=== PATIENT | male | born 1945 | race Caucasian/White ===

== ENCOUNTER 2017-06-12 10:29 | Day surgery (SDC) | payer MEDICARE ==
[~2017-06-12] VITALS: Ht 175.3 cm; Wt 101.2 kg
[~2017-06-12 10:29] MED LIST: ACET325T51 PO; ALBU8.5H2 INHALATION; BECL8.7A6 INHALATION; FELO10TA3 PO; LIP40 PO; LOSA50TA37 PO; Lactated Ringer's 1,000 ML IV ONE; METF500T7 PO; METF750T2 PO; METO2.5T12 PO; MULT-1018 PO; POTA-62 PO; SPIR50TA2 PO; TOP100 PO; TORS20TA3 PO; TRAZ150T72 PO; WARF6TAB6 PO
[2017-06-12] MEDS ORDERED: Propofol 10,000 mCg/mL 20 mL Inj ONE (10:30)
[2017-06-12] MEDS ORDERED: Glycopyrrolate 0.2 MG/ML 1mL Inj ONE (10:30)
[2017-06-12] MEDS ORDERED: Ketamine 10 mg/mL 20 mL Inj ONE (10:30)
[2017-06-12 11:01] VITALS: BP 107/66; PULSE 59; RESP 16; O2SAT 98
--- NOTE | 2017-06-12 12:00 | PCM.HPANE ---
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 Confirmed by CXR. Does not have TB testing due to known Past Anesthesia History Anesthesia History: Denies:: Abnormal Airway, Anesthesia Reactions, Difficult Intubation, Fam Anesthesia Reaction, Fam Malignant Hypertherm, Malignant Hyperthermia Diabetes History Hx Diabetes?: Yes MRSA MRSA: No Medications Blood Thinner: Coumadin Last Dose Blood Thinner: Jun 07, 2017 Hypertension Medication: Yes Home Meds Incl Beta Marvin: Yes Date Beta Marvin Taken: Jun 12, 2017 Time Beta Marvin Taken: 0800 Reported Medications Warfarin Sodium 6 Mg Tablet6 Mg PO DAILY 30 Days 06/11/17 Acetaminophen 325 Mg Wubsfa094 Mg PO Q4H PRN For Fever Ref 0 06/11/17 Trazodone 150 Mg Ulezth51 Mg PO HS Ref 0 06/11/17 Torsemide 20 Mg Rproow47 Mg PO DAILY 30 Days Ref 0 06/11/17 Metoprolol Succinate ER (Toprol XL)100 Mg Pkkxtn157 Mg PO BID Ref 0 06/11/17 Spironolactone 50 Mg Bocwct46 Mg PO DAILY #30 TABLET Ref 0 06/11/17 Beclomethasone Dipropionate (Qvar)8.7 Gm Aer.w.adap2 Puff INHALATION BID #8.7 GM 06/11/17 Albuterol HFA (Proair HFA)8.5 Gm Hfa.aer.ad2 Puffs INHALATION Q4H #1 INHALER 06/11/17 Potassium Chloride ER 20 Meq Tablet.er20 Meq PO DAILY Ref 0 TAKE WITH FOOD 06/11/17 Multivitamin (Multi Vitamin Daily)1 Each Tablet1 Each PO DAILY 30 Days Ref 0 06/11/17 Metolazone 2.5 Mg Tablet2.5 Mg PO DAILY #30 TABLET 06/11/17 Metformin ER 750 Mg Txicqs140 Mg PO DAILY Ref 0 06/11/17 Metformin ER 500 Mg Gutmfa938 Mg PO DAILY Ref 0 06/11/17 Losartan Potassium 50 Mg Mdlyxb75 Mg PO DAILY 06/11/17 Felodipine ER 10 Mg Tab.er.24h10 Mg PO DAILY Ref 0 06/11/17 Atorvastatin (Lipitor)40 Mg Npfkfq37 Mg PO DAILY Ref 0 06/11/17 Discontinued Reported Medications Warfarin Sodium 6 Mg Tablet6 Mg PO DAILY 30 Days 09/21/14 Acetaminophen (Tylenol Extra Strength)500 Mg Jbueeo336 Mg PO 09/21/14 Trazodone 150 Mg Smpofa56 Mg PO HS 30 Days Ref 0 09/21/14 Metoprolol Succinate ER (Toprol XL)100 Mg Jmfiw789 Mg PO BID 30 Days Ref 0 09/21/14 Spironolactone 25 Mg Fhuijg11 Mg PO DAILY #30 TABLET Ref 0 09/21/14 Potassium Chloride ER 20 Meq Tablet.er40 Meq PO BID 30 Days Ref 0 TAKE WITH FOOD 09/21/14 Multivitamin (Multiple Vitamins)1 Each Tablet1 Each PO DAILY 09/21/14 Lisinopril 20 Mg Remsyl33 Mg PO BID 30 Days Ref 0 09/21/14 Furosemide (Lasix)40 Mg Ophrdq12 Mg PO DAILY 30 Days Ref 0 09/21/14 Felodipine ER 10 Mg Tab.er.24h10 Mg PO BID 30 Days Ref 0 09/21/14 History History of ENT Problems?: No HEENT History: Positive for:: Hearing Problem Denies:: Abnormal Airway Cataracts Difficult Intubation Dysphagia Sinus Problem Denture Type: None Teeth Condition: Tooth Decay Hx of Heart Problems?: Yes Cardiovascular History: Positive for:: AICD (never fired) Cardiac Surgery (ICD 2008) Congestive Heart Failure (related to Afib) Coronary Artery Disease ([place] '00) Edema (Pedal trace) Hypertension Irregular Heartbeat (A fib; cardioversions in the past) Pacemaker Denies:: Atrial Fibrillation Chest Pain Heart Murmur Thrombophlebitis Valvular Heart Disease Other Cardiac History: no nitroglycerin Hx of Respiratory Problem?: Yes Respiratory History: Positive for:: Asthma Use of Inhalers / NEBS (albuterol daily) Denies:: COPD Chest Surgery Cough Dyspnea Emphysema Hemoptysis Pneumonia Tuberculosis Hx Neurologic Problems?: No Neurological History: Denies:: Alzheimer's Disease CVA Dementia Dizziness Headaches Parkinson's Disease Seizures TIA Hx of GI Problems?: Yes Gastrointestinal History: Positive for:: Gastroesphageal Reflux Gastrointestinal Bleeding Rectal Bleeding Hx of Problems?: Yes Genitourinary History: Positive for:: Kidney Stones (L nephrolithotomy) Denies:: Urinary Tract Infection Skin History: Denies:: History Skin Disorders? Pressure Ulcers Hx Musculoskeletal Problems?: No Musculoskeletal History: Denies:: Back Injury Fibromyalgia Joint Replacement Musculoskeletal Trauma Hx of Psycho/Social Problems?: No Psycho Social History: Denies:: Anxiety Bipolar Disorder Hx Depression Hx Surgeries?: Yes (PACEMAKER/AICD, KIDNEY STONES X2, MIGUEL, ACHILLES TENDON) Hx Any Other Health Problems?: Yes Other History: Positive for:: Hospitalization Denies:: Cancer Endocrine Disease Thyroid Disease History Blood Transfusions: Denies:: Blood Transfuse Reaction Blood Transfusions Hx Diabetes: Yes Hx Alcohol Use: NoHx Substance Use: No Smoking Status: Never Smoker Stop/Bang Treated for Sleep Apnea?: No Do You Have a CPAP Machine?: No S-Snoring: Do You Snore Loudly: No T-Tired: feel tired, fatigued: No O-Obsered: Observed not breath: No P-Blood Pressure: treated: Yes B- Body Mass Index > 35 kg/m2: No A- Age over 50: Yes N- Neck Large Circumference: No G- Gender Male: Yes SONIA Total Score: 3 Risk Assessment Category Category 1A: Patient has history of documented sleep apnea, and HAS NOT received any narcotic, sedative or anesthesia administration during this stay. Category 1B: Patient has history of documented sleep apnea, and HAS received any narcotic , sedative or anesthesia administration during this stay Category 2: Patient has SUSPECTED Obstructive Sleep Apnea, and HAS received any narcotic , sedative or anesthesia administration during this stay. Category 3: Patient has SUSPECTED Obstructive Sleep Apnea and HAS NOT received narcotic, sedative or anesthesia administration during this stay. Category 4: Outpatient in Procedural Areas with known sleep apnea or who screen positive for High Risk via the STOP/BANG questionnaire. Exam Exam Vital Signs Vital Signs Date Time Temp Pulse Resp B/P Pulse Ox O2 Delivery O2 Flow Rate FiO2 06/12/17 11:01 36.2 59 16 107/66 98 Room Air General Appearance: Alert, Oriented X3, Cooperative, No Acute Distress HEENT/AIRWAY: MP 3, Neck Movement (FROM), Mouth Opening (3), Other (tmd3) Lungs: Diminished Heart: Regular Rate/Rhythm, Other (paced) Plan Impression Patient chart reviewed, patient interviewed and anesthestic plan with risks, benefits, and alternatives discussed, and informed consent obtained. NPO per Anesth. Guidelines: Yes ASA Physical Status: ASA4 Life Threatening Anesthetic Plan: TIVA Bene/Risks/Altern/Consents: Yes HP Complete Prior to Induction: Yes Anish Smith MD Jun 12, 2017 12:00
[2017-06-12 12:57] VITALS: BP 106/60; PULSE 70; RESP 12; O2SAT 95
[2017-06-12 13:07] VITALS: BP 105/65; PULSE 73; RESP 12; O2SAT 96
[2017-06-12 13:13] VITALS: BP 113/71; PULSE 73; RESP 12; O2SAT 99
--- NOTE | 2017-06-12 13:36 | ENDO ---
[address] [address] ENDOSCOPY PROCEDURE PATIENT: EDDA BOLTNO : 1945 MR#: [id number] ADMIT: 06/12/2017 JOB ID: [id number] DATE: 06/12/2017 PRIMARY PROVIDER: Roderick Delacruz M.D. PROCEDURE: Colonoscopy with hot snare polypectomy and cold forceps polypectomy and cold snare polypectomy. INDICATIONS: A 71-year-old male who had noted some intermittent red blood per rectum. He is due for colon cancer screening. EQUIPMENT: PCF H 190 DL. SEDATION: Monitored anesthesia as provided by Dr. Anish Smith. COMPLICATIONS: None identified. BOWEL PREPARATION: Fair, adequate examination. PROCEDURAL INFORMATION: After the risks and benefits were explained, written and verbal informed consent was obtained. The patient was brought into the endoscopy suite and placed into the left lateral decubitus position. Sedation was achieved as above. A digital rectal examination was accomplished. Mild internal hemorrhoids were noted. The scope was introduced into the rectum and advanced under direct visualization to the level of the cecum, as identified by the appendiceal orifice and ileocecal valve. The scope was slowly withdrawn to carefully examine the mucosa for any defects or lesions. The colon was decompressed. The scope removed from the patient who tolerated the procedure well. FINDINGS: In the colon proper and cecum, there were three polyps removed one by way of hot snare (this was the largest at about 7 mm), one by cold snare and one by cold forceps. There was also a larger perhaps 12-14 mm sessile polyp in the cecum tucked up next to the ileocecal valve. Difficult to see and maintain position on. We removed this by way of piecemeal hot snare polypectomy using a Jumbo snare and standard polypectomy snare. There was one final component of the polyp that we just could not removed by way of snare and I ablated this using right colon settings with a circumferential APC probe. No other significant pathology was appreciated throughout. We placed a magnet over the patient's pacemaker during the cautery component of our procedure. Scope time was 41 minutes based on the challenging polypectomy in the cecum and, therefore, a 22 modifier was requested. ENDOSCOPIC DIAGNOSES: Gastroduodenopathy. 1. Colon polyps. 2. Hdkp-vh-jdfeqqkq internal hemorrhoids. RECOMMENDATIONS: 1. Await histopathology. 2. Repeat colonoscopy in three years' time. 3. The patient is encouraged to hold off on restarting Coumadin for another few days.
--- NOTE | 2017-06-17 16:06 | PATH ---
SURGICAL PATHOLOGY Attending Physician:Janes Licea CASE STATUS: Signed Out PATIENT NAME: EDDA BOLTON PID: [id number] : 1945 DATE COLLECTED:06/12/2017 19:09 SPECIMEN: 1: Colon, Polyp 2: Colon, Polyp CLINICAL HISTORY: 1). COLON POLYP X 1 2). CECAL POLYP X 3 FINAL DIAGNOSIS: 1. Colon Polyp, Biopsy: Tubular adenoma. 2. Cecal Polyps x3, Polypectomies: Fragments of sessile serrated adenoma. ICD10: D12.6 GROSS DESCRIPTION: The specimen is received in two formalin filled containers labeled with the patient's name. 1). The specimen is labeled "colon polyp" and consists of 3 portions of tissue which aggregate to 0.3 x 0.3 x 0.3 CM. The specimen is entirely submitted in cassette 1A. 2). The specimen is labeled "cecal polyp" and consists of multiple portions of tissue which aggregate to 0.6 x 0.6 x 0.5 CM. The specimen is entirely submitted in cassette 2A. 06/12/2017CO ICD-9 CODES: CPT CODES: 1: 16696 2: 30983 Electronically Signed Out Abraham Monet MD, Ph.D. [facility] [address], [place] [address] Technical component performed at [facility], [facility] [address], [place], [address]
== END 2017-06-12 23:59 | disposition home or self-care (01) ==
LOC: END 10:29
PROVIDERS: ATTEND Internal Medicine Gastroenterology
DX: Z12.11 Encounter for screening for malignant neoplasm of colon (principal); D12.0 Benign neoplasm of cecum; D12.6 Benign neoplasm of colon, unspecified; K64.8 Other hemorrhoids; K92.1 Melena; I10 Essential (primary) hypertension; I34.0 Nonrheumatic mitral (valve) insufficiency; I50.9 Heart failure, unspecified; I25.10 Atherosclerotic heart disease of native coronary artery without angina pectoris; I48.2 Chronic atrial fibrillation; E11.9 Type 2 diabetes mellitus without complications; E78.5 Hyperlipidemia, unspecified; R60.9 Edema, unspecified; K27.9 Peptic ulcer, site unspecified, unspecified as acute or chronic, without hemorrhage or perforation; K21.9 Gastro-esophageal reflux disease without esophagitis; R06.00 Dyspnea, unspecified; Z95.0 Presence of cardiac pacemaker; Z79.84 Long term (current) use of oral hypoglycemic drugs; Z79.01 Long term (current) use of anticoagulants; Z87.442 Personal history of urinary calculi
CPT/HCPCS: 45380; 45385; J2250; J2704; J7120